=== PATIENT | male | born 1970 | race Caucasian/White ===

== ENCOUNTER 2019-09-12 08:00 | Outpatient (NON) | payer BC, SELFPAY ==
[2019-09-12 18:51] LABS: SARS-CoV-2 RNA PCR Negative
== END 2019-09-12 08:01 ==
PROVIDERS: PCP Emergency Medicine; Visit Provider Emergency Medicine
DX: R50.9 Fever, unspecified (principal); Z20.828 Contact with and (suspected) exposure to other viral communicable diseases
CPT/HCPCS: 87635; C9803; U0003

== ENCOUNTER 2024-01-08 02:17 | Day surgery (SDC) | payer OTHER, SELFPAY ==
[2023-12-18 15:59] VITALS: BMI 33.7
--- NOTE | 2024-01-08 08:24 | P.PNAN_ITS ---
Anes - Initial Pre Proc Eval Procedure: Operation Date: 01/08/24 10:00 Proposed Procedures p Colonoscopy - Manuelito Jonas MD Date/Time: 01/08/24 08:24 Surgeon: Manuelito Jonas MD Pre Op Diagnosis: Other fecal abnormalities Patient Data Age: 53 Gender: M Height: 1.7 m Weight: 97.7 kg Allergies Allergy/AdvReac Type Severity Reaction Status Date / Time No Known Allergies Allergy Verified 01/08/24 08:25 Home Medications Medication Instructions Recorded Confirmed Type famotidine 40 mg tablet 40 mg PO DAILY 12/18/23 01/08/24 History fenofibrate 160 mg tablet 160 mg PO DAILY 12/18/23 01/08/24 History gabapentin 600 mg tablet 600 mg PO DAILY 12/18/23 01/08/24 History glimepiride 2 mg tablet 2 mg PO DAILY 12/18/23 01/08/24 History metformin 850 mg tablet 850 mg PO DAILY 12/18/23 01/08/24 History modafinil 200 mg tablet 200 mg PO DAILY 12/18/23 01/08/24 History olanzapine 10 mg tablet 10 mg PO DAILY 12/18/23 01/08/24 History rosuvastatin 20 mg tablet 20 mg PO DAILY 12/18/23 01/08/24 History Patient hx anesthesia problems: other (Pt had hx of ECT and had difficulty going out . ) Family hx anesthesia problems: none Results Review: All pre-operative results and documents have been reviewed as part of the pre- operative evaluation. [facility] Social History Social History Smoking status: Former smoker Tobacco type: cigarettes Substance use: current Substance use type: marijuana Living arrangements: alone Spiritual care concerns: No Anes - Eval Final PreProcedure Day of Procedure 01/08/24 08:24 Patient weight: obese Heart: regular rate and rhythm Lungs: clear to auscultation Airway: Mallampati scale class II Neurological: alert and oriented Last oral intake: >/= 8 hours ASA classification: III Emergent: no Anesthesia type and monitoring: general GIVS and standard monitoring Results Review: All pre-operative results and documents have been reviewed as part of the pre- operative evaluation. Hyperlipidemia, DM, hx of smoking and quit approx 2021. Informed Consent: The patient's anesthetic plan and its attendant risks and benefits were discussed with the patient/family/POA. Questions were solicited and answers provided to the satisfaction of the patient/family/POA.
[2024-01-08 08:26] VITALS: BP 137/86; PULSE 88; RESP 18; TEMP 36.3; O2SAT 99; BMI 32.2
[2024-01-08] MEDS: LACTATED RINGERS 1,000 ML 150 ML IV CONT (08:39)
--- NOTE | 2024-01-08 08:53 | PM.HPGS ---
History of Present Illness History of Present Illness Consent: Risks, benefits, and alternatives have been discussed and questions answered. Patient agrees to proceed with procedure. Chief complaint: Other fecal abnormalities Narrative: Kevin Hassan is a 53 year old male here for first colonoscopy, had + FOBT Review of Systems Review of Systems: All systems reviewed & are unremarkable except as noted in HPI and below PMFSH Past Medical History Medical History (Updated 01/08/24 @ 08:55 by Manuelito Jonas MD) Occult blood in stools Social History Social History Smoking status: Former smoker Tobacco type: cigarettes Substance use: current Substance use type: marijuana Living arrangements: alone Spiritual care concerns: No Meds Home Medications and Allergies Home Medications Medication Instructions Recorded Confirmed Type famotidine 40 mg tablet 40 mg PO DAILY 12/18/23 01/08/24 History fenofibrate 160 mg tablet 160 mg PO DAILY 12/18/23 01/08/24 History gabapentin 600 mg tablet 600 mg PO DAILY 12/18/23 01/08/24 History glimepiride 2 mg tablet 2 mg PO DAILY 12/18/23 01/08/24 History metformin 850 mg tablet 850 mg PO DAILY 12/18/23 01/08/24 History modafinil 200 mg tablet 200 mg PO DAILY 12/18/23 01/08/24 History olanzapine 10 mg tablet 10 mg PO DAILY 12/18/23 01/08/24 History rosuvastatin 20 mg tablet 20 mg PO DAILY 12/18/23 01/08/24 History Allergies Allergy/AdvReac Type Severity Reaction Status Date / Time No Known Allergies Allergy Verified 01/08/24 08:25 Vital Signs Vital Signs - 24 hr 01/08/24 08:26 Temperature 97.3 F L Pulse Rate 88 Respiratory Rate 18 Blood Pressure 137/86 Pulse Oximetry 99 Oxygen Delivery Room Air Exam Const: General: comfortable and no acute distress HENMT: Face/Nose/Sinus: Normal nares present Eyes: General: appearance normal, both eyes and all related structures Neck: Neck: no JVD Resp: Auscultation: clear to auscultation bilaterally Cardio: Rate: regular rate Rhythm: regular rhythm GI: Inspection: non-distended GI Palp: Yes Soft to palpation Skin: General skin exam: normal color Neuro: General: gait normal Speech: normal speech Extrem: General: normal to inspection Psych: Mental Status: mental status grossly normal Assessment and Plan Assessment and plan (1) Occult blood in stools: Code(s): R19.5 - Other fecal abnormalities Status: Acute Assessment and Plan: colonoscopy
[2024-01-08 10:16] VITALS: BP 115/71; PULSE 79; RESP 18; O2SAT 98
[2024-01-08 10:26] VITALS: BP 122/81; PULSE 76; RESP 17; O2SAT 100
[2024-01-08 10:36] VITALS: BP 123/90; PULSE 71; RESP 20; O2SAT 100
[2024-01-08 11:11] LABS: Glucose Point of Care 135 mg/dl (65-105)
== END 2024-01-08 10:49 | disposition home or self-care (01) ==
PROVIDERS: PCP Emergency Medicine; Visit Provider Internal Medicine Gastroenterology
PROC: 0DJD8ZZ Inspection of Lower Intestinal Tract, Via Natural or Artificial Opening Endoscopic (ICD-10-PCS; CPT 45378; principal; 2024-01-08 10:00)
DX: R19.5 Other fecal abnormalities (principal); D12.4 Benign neoplasm of descending colon; D12.5 Benign neoplasm of sigmoid colon; Z87.891 Personal history of nicotine dependence
CPT/HCPCS: 45385; 45381; 82948; 88305; J2704; J7120

== ENCOUNTER 2025-02-17 01:57 | Day surgery (SDC) | payer OTHER, SELFPAY ==
[2025-02-05 14:51] VITALS: BMI 34.5
--- OUTSIDE RECORDS SUMMARY | 2025-02-17 01:59 | XMS_ITS | Clinical Summary ---
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 Name Role Phone Unavailable Primary Care Provider Unavailabl e Social History Tobacco Use Types Packs/Day Years Used Date Smoking Tobacco: Never Assessed Comments Unknown Sex and Gender Information Value Date Recorded Sex Assigned at Not on file Legal Sex Female 2:19 PM CDT Gender Identity Not on file Sexual Orientation Not on file Plan of Treatment Health Maintenance Due Date Last Done Comments HEPATITIS B VACCINES (1 of 3 - 19+ 3-dose series) 1989 HPV/Cotest (21-29) 12/11/1991 CERVICAL CANCER SCREENING 2000 HPV/Cotest (30-65) 2000 PAP SMEAR 2000 BREAST CANCER SCREENING 2010 COLORECTAL SCREENING 12/11/2015 Colorectal Cancer Screening 12/11/2015 FIT-DNA Q 3 years 12/11/2015 FIT/FOBT Q 1 year 12/11/2015 Flex Sig/CT Colonography Q 5 years 12/11/2015 ZOSTER VACCINE (1 of 2) 2020 DTAP/TDAP/TD VACCINES (2 - Td or Tdap) 01/22/2024 INFLUENZA VACCINE (#1) 2024 01/21/2015, 2010
--- OUTSIDE RECORDS SUMMARY | 2025-02-17 01:59 | XMS_ITS | Data Portability ---
Author Organization Sukhdeep CÁRDENAS Address [address] [place] [address] [place] [address] Assessment No assessment recorded. Plan of Treatment Reminders Order Date Submit Date Provider Last Modified By Organization Details Last Modified Time Details Appointments None recorded. Lab CMP, serum or plasma 2015 016 LUANN FLETCHER, Ferdinand [address], [address], [place], [address], 6 06:15:08 lipid panel, serum 2015 016 LUANN FLETCHER, Ferdinand aldatresa [address], [address], [place], [address], 6 06:15:09 CBC 2015 016 LUANN FLETCHER, Ferdinand aldatresa [address], [address], [place], [address], 6 06:15:09 PSA, serum or plasma 2014 015 LUANN FLETCHER, Ferdinand anushabhartitresa [address], [address], [place], [address], 5 07:22:40 CBC 2014 015 LUANN FLETCHER, Ferdinand Camera Agroalimentosaldatresa [address], [address], [place], [address], 5 07:22:39 CMP, serum or plasma 2014 015 LUANN FLETCHER, Ferdinand [address], [address], [place], [address], 5 07:22:38 lipid panel, serum 2014 015 LUANN [facility], [address], [address], [place], [address], 5 07:22:39 TSH, serum or plasma 2014 015 LUANN [facility], [address], [address], [place], [address], 5 07:22:40 CMP, serum or plasma 2014 015 [email or web address] [facility], [address], [address], [place], [address], 5 09:32:30 lipid panel, serum 2014 015 [email or web address] [facility], [address], [address], [place], [address], 5 09:32:30 CMP, serum or plasma 2014 015 [facility], [address], [address], [place], [address], 5 16:27:58 lipid panel, serum 2014 015 [email or web address] [facility], [address], [address], [place], [address], 5 16:27:58 Referral physical therapist referral 2014 015 [email or web address] [facility], [address] [facility], [place], [address], 5 08:42:37 Procedures None recorded. Surgeries None recorded. Imaging x-ray, thoracic spine, 2 view 2014 015 LUANN Not available 5 11:43:36 Medication Orders erythromyci n 5 mg/gram (0.5 %) eye ointment 2015 016 nsuthan [facility] [place], [address], [place], [address], 6 09:38:20 baclofen 20 mg tablet 2014 015 nsuthan Not available 5 09:40:11 triamcinolo ne acetonide 0.1 % topical cream 2014 015 nsuthan Not available 6 09:14:49 baclofen 10 mg tablet 2014 015 nsuthan Not available 5 09:34:34 ranitidine 150 mg tablet 2014 015 nsuthan Not available 5 12:03:56 pravastatin 40 mg tablet 2014 015 nsuthan Not available 5 12:03:56 fenofibrate 160 mg tablet 2014 015 nsuthan Not available 5 12:03:56 fenofibrate 160 mg tablet 2014 015 nsuthan Not available 5 13:13:28 gabapentin 300 mg capsule 2014 015 nsuthan Not available 5 13:13:29 Mobic 15 mg tablet 2014 015 nsuthan Not available 5 11:53:03 ranitidine 150 mg tablet 2014 015 nsuthan Not available 5 13:13:29 Patient TargetsNo targets recorded. Patient Instructions Encounter Date Encounter Id Patient Instructions Last Modified By Organization Details Last Modified Time 05/15/2014 [id number] gastroesophageal reflux disease (GERD): care instructions nsuthan Not available 05/15/2014 13:13:29 Take meds as prescribed labs before next visit Healthy diet/ exercise nsuthan Not available 05/15/2014 13:13:29 09/17/2014 [id number] Take meds as prescribed Healthy diet/ exercise f/u in 3 month with labs nsuthan Not available 09/17/2014 12:03:56 01/21/2015 [id number] Take meds as prescribed Healthy diet/ exercise f/u in 3 month nsuthan Not available 01/21/2015 09:40:11 04/22/2015 [id number] Take meds as prescribed Healthy diet/ exercise f/u in 4 month nsuthan Not available 04/22/2015 09:37:55 10/21/2015 [id number] pt to restart me ds as prescribed Healthy diet/ exercise pt to see eye doctor f/u in 4 month nsuthan Not available 10/21/2015 09:38:20 Reason for Referral Referring Physician: Erika Mitchell, Internal Medicine, Encounter Date: 01/21/2015 Results Created Date Observation Date Name Description Value Unit Range Abnormal Flag Note LastModifiedBy Organization Detail LastModifiedTime 09/10/19 15 09/10/2014 CMP, serum or plasm a glucose, serum 134 mg/dL 65-99 high Not Available [facility] ([facility]) [address] [place], [address], 09/10/2014 06:28:53 09/10/19 15 09/10/2014 CMP, serum or plasm a BUN 17 mg/dL 6-24 Not Available [facility] ([facility]) [address] [place], [address], 09/10/2014 06:28:53 09/10/19 15 09/10/2014 CMP, serum or plasm a creatinine, serum 1.67 mg/dL 0.76-1 .27 high Not Available [facility] ([facility]) [address] [place], [address], 09/10/2014 06:28:53 09/10/19 15 09/10/2014 CMP, serum or plasm a eGFR if nonafricn AM 49 mL/mi n/1.7 3 >59 low Not Available [facility] ([facility]) [address] [facility] [place], [address], 09/10/2014 06:28:53 09/10/19 15 09/10/2014 CMP, serum or plasm a eGFR if africn AM 57 mL/mi n/1.7 3 >59 low Not Available [facility] ([facility]) [address] [facility] [place], [address], 09/10/2014 06:28:53 09/10/19 15 09/10/2014 CMP, serum or plasm a BUN/creatini ne ratio 10 9-20 Not Available [facility] ([facility]) [address] [facility] [place], [address], 09/10/2014 06:28:53 09/10/19 15 09/10/2014 CMP, serum or plasm a sodium, serum 140 mmol/ L 134-14 4 Not Available [facility] ([facility]) [address] [facility] [place], [address], 09/10/2014 06:28:53 09/10/19 15 09/10/2014 CMP, serum or plasm a potassium, serum 4.1 mmol/ L 3.5-5. 2 Not Available [facility] ([facility]) [address] [facility] [place], [address], 09/10/2014 06:28:53 09/10/1909/10/2014 CMP, serum or plasm a chloride, serum 101 mmol/ L 97-108 Not Available [facility] ([facility]) [address] [facility] [place], [address], 09/10/2014 06:28:53 09/10/1909/10/2014 CMP, serum or plasm a carbon dioxide, total 23 mmol/ L 18-29 Not Available [facility] ([facility]) [address] [facility] [place], [address], 09/10/2014 06:28:53 09/10/19 15 09/10/2014 CMP, serum or plasm a calcium, serum 10.2 mg/dL 8.7-10 .2 Not Available [facility] ([facility]) [address] [place], [address], 09/10/2014 06:28:53 09/10/19 15 09/10/2014 CMP, serum or plasm a protein, total, serum 7.2 g/dL 6.0-8. 5 Not Available [facility] ([facility]) [address] [place], [address], 09/10/2014 06:28:53 09/10/1909/10/2014 CMP, serum or plasm a albumin, serum 4.7 g/dL 3.5-5. 5 Not Available [facility] ([facility]) [address] [place], [address], 09/10/2014 06:28:53 09/10/1909/10/2014 CMP, serum or plasm a globulin, total 2.5 g/dL 1.5-4. 5 Not Available [facility] ([facility]) [address] [place], [address], 09/10/2014 06:28:53 09/10/19 15 09/10/2014 CMP, serum or plasm a A/G ratio 1.9 1.1-2. 5 Not Available [facility] ([facility]) [address] [place], [address], 09/10/2014 06:28:53 09/10/1909/10/2014 CMP, serum or plasm a bilirubin, total 0.2 mg/dL 0.0-1. 2 Not Available [facility] ([facility]) [address] [place], [address], 09/10/2014 06:28:53 09/10/19 15 09/10/2014 CMP, serum or plasm a alkaline phosphatase, S 37 IU/L 39-117 low Not Available [facility] ([facility]) [address] [place], [address], 09/10/2014 06:28:53 09/10/19 15 09/10/2014 CMP, serum or plasm a AST (SGOT) 23 IU/L 0-40 Not Available [facility] ([facility]) [address] [place], [address], 09/10/2014 06:28:53 09/10/19 15 09/10/2014 CMP, serum or plasm a ALT (SGPT) 23 IU/L 0-44 Not Available [facility] ([facility]) [address] [place], [address], 09/10/2014 06:28:53 09/10/19 15 09/10/2014 lipid panel , serum cholesterol, total 247 mg/dL 100-19 9 high Not Available [facility] ([facility]) [address] [place], [address], 09/10/2014 06:28:54 09/10/19 15 09/10/2014 lipid panel , serum triglyceride s 286 mg/dL 0-149 high Not Available [facility] ([facility]) [address] [place], [address], 09/10/2014 06:28:54 09/10/19 15 09/10/2014 lipid panel , serum HDL cholesterol 38 mg/dL >39 low ACCOR DING TO ATP-I II GUIDE LINES , HDL-C >59 MG/DL IS CONSI DERED A NEGAT VALERIE RISK FACTO R FOR CHD. Not Available [facility] ([facility]) [address] [place], [address], 09/10/2014 06:28:54 09/10/19 15 09/10/2014 lipid panel , serum VLDL cholesterol jesse 57 mg/dL 5-40 high Not Available [facility] ([facility]) [address] [place], [address], 09/10/2014 06:28:54 09/10/19 15 09/10/2014 lipid panel , serum LDL cholesterol calc 152 mg/dL 0-99 high Not Available [facility] ([facility]) [address] [facility] [place], [address], 09/10/2014 06:28:54 09/10/19 15 09/10/2014 lipid panel , serum comment: [employer] Not Available [facility] ([facility]) [address] [place], [address], 09/10/2014 06:28:54 01/16/20 15 01/16/2015 CMP, serum or plasm a glucose, serum 86 mg/dL 65-99 Not Available [facility] ([facility]) [address] [facility] [place], [address], 01/16/2015 07:29:22 01/16/20 15 01/16/2015 CMP, serum or plasm a BUN 12 mg/dL 6-24 Not Available [facility] ([facility]) [address] [facility] [place], [address], 01/16/2015 07:29:22 01/16/20 15 01/16/2015 CMP, serum or plasm a creatinine, serum 1.20 mg/dL 0.76-1 .27 Not Available [facility] ([facility]) [address] [facility] [place], [address], 01/16/2015 07:29:22 01/16/20 15 01/16/2015 CMP, serum or plasm a eGFR if nonafricn AM 73 mL/mi n/1.7 3 >59 Not Available [facility] ([facility]) [address] [facility] [place], [address], 01/16/2015 07:29:22 01/16/20 15 01/16/2015 CMP, serum or plasm a eGFR if africn AM 85 mL/mi n/1.7 3 >59 Not Available [facility] ([facility]) [address] [place], [address], 01/16/2015 07:29:22 01/16/20 15 01/16/2015 CMP, serum or plasm a BUN/creatini ne ratio 10 9-20 Not Available [facility] ([facility]) [address] [facility] [place], [address], 01/16/2015 07:29:22 01/16/20 15 01/16/2015 CMP, serum or plasm a sodium, serum 141 mmol/ L 134-14 4 Not Available [facility] ([facility]) [address] [place], [address], 01/16/2015 07:29:22 01/16/20 15 01/16/2015 CMP, serum or plasm a potassium, serum 4.5 mmol/ L 3.5-5. 2 Not Available [facility] ([facility]) [address] [place], [address], 01/16/2015 07:29:22 01/16/20 15 01/16/2015 CMP, serum or plasm a chloride, serum 102 mmol/ L 97-108 Not Available [facility] ([facility]) [address] [place], [address], 01/16/2015 07:29:22 01/16/20 15 01/16/2015 CMP, serum or plasm a carbon dioxide, total 22 mmol/ L 18-29 Not Available [facility] ([facility]) [address] [place], [address], 01/16/2015 07:29:22 01/16/20 15 01/16/2015 CMP, serum or plasm a calcium, serum 9.8 mg/dL 8.7-10 .2 Not Available [facility] ([facility]) [address] [place], [address], 01/16/2015 07:29:22 01/16/20 15 01/16/2015 CMP, serum or plasm a protein, total, serum 7.2 g/dL 6.0-8. 5 Not Available [facility] ([facility]) [address] [facility] [place], [address], 01/16/2015 07:29:22 01/16/2001/16/2015 CMP, serum or plasm a albumin, serum 4.9 g/dL 3.5-5. 5 Not Available [facility] ([facility]) [address] [facility] [place], [address], 01/16/2015 07:29:22 01/16/2001/16/2015 CMP, serum or plasm a globulin, total 2.3 g/dL 1.5-4. 5 Not Available [facility] ([facility]) [address] [facility] [place], [address], 01/16/2015 07:29:22 01/16/2001/16/2015 CMP, serum or plasm a A/G ratio 2.1 1.1-2. 5 Not Available [facility] ([facility]) [address] [facility] [place], [address], 01/16/2015 07:29:22 01/16/2001/16/2015 CMP, serum or plasm a bilirubin, total <0.2 mg/dL 0.0-1. 2 Not Available [facility] ([facility]) [address] [facility] [place], [address], 01/16/2015 07:29:22 01/16/2001/16/2015 CMP, serum or plasm a alkaline phosphatase, S 57 IU/L 39-117 Not Available [facility] ([facility]) [address] [facility] [place], [address], 01/16/2015 07:29:22 01/16/2001/16/2015 CMP, serum or plasm a AST (SGOT) 26 IU/L 0-40 Not Available [facility] ([facility]) [address] [facility] [place], [address], 01/16/2015 07:29:22 01/16/20 15 01/16/2015 CMP, serum or plasm a ALT (SGPT) 38 IU/L 0-44 Not Available [facility] ([facility]) [address] [place], [address], 01/16/2015 07:29:22 01/16/20 15 01/16/2015 lipid panel , serum cholesterol, total 241 mg/dL 100-19 9 above high normal Not Available [facility] ([facility]) [address] [place], [address], 01/16/2015 07:29:22 01/16/2001/16/2015 lipid panel , serum triglyceride s 651 mg/dL 0-149 alert high Not Available [facility] ([facility]) [address] [place], [address], 01/16/2015 07:29:22 01/16/20 15 01/16/2015 lipid panel , serum HDL cholesterol 32 mg/dL >39 below low normal ACCOR DING TO ATP-I II GUIDE LINES , HDL-C >59 MG/DL IS CONSI DERED A NEGAT VALERIE RISK FACTO R FOR CHD. Not Available [facility] ([facility]) [address] [place], [address], 01/16/2015 07:29:22 01/16/2001/16/2015 lipid panel , serum VLDL cholesterol jesse COMMEN T mg/dL 5-40 THE CALCU LATIO N FOR THE VLDL MERY STERO L IS NOT VALID WHEN TRIGL YCERI DE LEVEL IS >400 MG/DL . Not Available [facility] ([facility]) [address] [place], [address], 01/16/2015 07:29:22 01/16/20 15 01/16/2015 lipid panel , serum LDL cholesterol calc COMMEN T mg/dL 0-99 TRIGL YCERI DE RESUL T INDIC ATED IS TOO HIGH FOR AN ACCUR ATE LDL MERY STERO L ESTIM ATION . Not Available [facility] ([facility]) [address] [facility] [place], [address], 01/16/2015 07:29:22 01/16/20 15 01/16/2015 lipid panel , serum comment: [employer] Not Available [facility] ([facility]) [address] [facility] [place], [address], 01/16/2015 07:29:22 04/22/20 15 04/23/2015 CMP, serum or plasm a glucose, serum 94 mg/dL 65-99 Not Available [facility] ([facility]) [address] [facility] [place], [address], 04/23/2015 07:22:38 04/22/20 15 04/23/2015 CMP, serum or plasm a BUN 12 mg/dL 6-24 Not Available [facility] ([facility]) [address] [facility] [place], [address], 04/23/2015 07:22:38 04/22/20 15 04/23/2015 CMP, serum or plasm a creatinine, serum 1.25 mg/dL 0.76-1 .27 Not Available [facility] ([facility]) [address] [facility] [place], [address], 04/23/2015 07:22:38 04/22/20 15 04/23/2015 CMP, serum or plasm a eGFR if nonafricn AM 70 mL/mi n/1.7 3 >59 Not Available [facility] ([facility]) [address] [facility] [place], [address], 04/23/2015 07:22:38 04/22/20 15 04/23/2015 CMP, serum or plasm a eGFR if africn AM 80 mL/mi n/1.7 3 >59 Not Available [facility] ([facility]) [address] [facility] [place], [address], 04/23/2015 07:22:38 04/22/20 15 04/23/2015 CMP, serum or plasm a BUN/creatini ne ratio 10 9-20 Not Available [facility] ([facility]) [address] [place], [address], 04/23/2015 07:22:38 04/22/20 15 04/23/2015 CMP, serum or plasm a sodium, serum 141 mmol/ L 134-14 4 Not Available [facility] ([facility]) [address] [place], [address], 04/23/2015 07:22:38 04/22/20 15 04/23/2015 CMP, serum or plasm a potassium, serum 4.5 mmol/ L 3.5-5. 2 Not Available [facility] ([facility]) [address] [place], [address], 04/23/2015 07:22:38 04/22/20 15 04/23/2015 CMP, serum or plasm a chloride, serum 103 mmol/ L 97-108 Not Available [facility] ([facility]) [address] [place], [address], 04/23/2015 07:22:38 04/22/20 15 04/23/2015 CMP, serum or plasm a carbon dioxide, total 24 mmol/ L 18-29 Not Available [facility] ([facility]) [address] [place], [address], 04/23/2015 07:22:38 04/22/20 15 04/23/2015 CMP, serum or plasm a calcium, serum 9.9 mg/dL 8.7-10 .2 Not Available [facility] ([facility]) [address] [place], [address], 04/23/2015 07:22:38 04/22/20 15 04/23/2015 CMP, serum or plasm a protein, total, serum 7.2 g/dL 6.0-8. 5 Not Available [facility] ([facility]) [address] [place], [address], 04/23/2015 07:22:38 04/22/20 15 04/23/2015 CMP, serum or plasm a albumin, serum 4.6 g/dL 3.5-5. 5 Not Available [facility] ([facility]) [address] [place], [address], 04/23/2015 07:22:38 04/22/20 15 04/23/2015 CMP, serum or plasm a globulin, total 2.6 g/dL 1.5-4. 5 Not Available [facility] ([facility]) [address] [place], [address], 04/23/2015 07:22:38 04/22/20 15 04/23/2015 CMP, serum or plasm a A/G ratio 1.8 1.1-2. 5 Not Available [facility] ([facility]) [address] [place], [address], 04/23/2015 07:22:38 04/22/20 15 04/23/2015 CMP, serum or plasm a bilirubin, total <0.2 mg/dL 0.0-1. 2 Not Available [facility] ([facility]) [address] [place], [address], 04/23/2015 07:22:38 04/22/20 15 04/23/2015 CMP, serum or plasm a alkaline phosphatase, S 34 IU/L 39-117 below low normal Not Available [facility] ([facility]) [address] [place], [address], 04/23/2015 07:22:38 04/22/20 15 04/23/2015 CMP, serum or plasm a AST (SGOT) 26 IU/L 0-40 Not Available [facility] ([facility]) [address] [place], [address], 04/23/2015 07:22:38 04/22/20 15 04/23/2015 CMP, serum or plasm a ALT (SGPT) 28 IU/L 0-44 Not Available [facility] ([facility]) [address] [facility], [place], [address], 04/23/2015 07:22:38 04/22/20 15 04/23/2015 CBC WBC 5.9 x10e3 /uL 3.4-10 .8 Not Available [facility] ([facility]) [address] [facility], [place], [address], 04/23/2015 07:22:38 04/22/20 15 04/23/2015 CBC RBC 4.34 x10e6 /uL 4.14-5 .80 Not Available [facility] ([facility]) [address] [facility], [place], [address], 04/23/2015 07:22:38 04/22/20 15 04/23/2015 CBC hemoglobin 13.2 g/dL 12.6-1 7.7 Not Available [facility] ([facility]) [address] [facility], [place], [address], 04/23/2015 07:22:38 04/22/20 15 04/23/2015 CBC hematocrit 39.0 % 37.5-5 1.0 Not Available [facility] ([facility]) [address] [facility], [place], [address], 04/23/2015 07:22:38 04/22/20 15 04/23/2015 CBC MCV 90 fL 79-97 Not Available [facility] ([facility]) [address] [facility], [place], [address], 04/23/2015 07:22:38 04/22/20 15 04/23/2015 CBC MCH 30.4 pg 26.6-3 3.0 Not Available [facility] ([facility]) [address] [place], [address], 04/23/2015 07:22:38 04/22/20 15 04/23/2015 CBC MCHC 33.8 g/dL 31.5-3 5.7 Not Available [facility] ([facility]) [address] [place], [address], 04/23/2015 07:22:38 04/22/20 15 04/23/2015 CBC RDW 13.6 % 12.3-1 5.4 Not Available [facility] ([facility]) [address] [place], [address], 04/23/2015 07:22:38 04/22/20 15 04/23/2015 CBC platelets 288 x10e3 /uL 150-37 9 Not Available [facility] ([facility]) [address] [place], [address], 04/23/2015 07:22:38 04/22/20 15 04/23/2015 CBC NRBC [employer] Not Available [facility] ([facility]) [address] [place], [address], 04/23/2015 07:22:38 04/22/20 15 04/23/2015 lipid panel , serum cholesterol, total 186 mg/dL 100-19 9 Not Available [facility] ([facility]) [address] [place] [place], [address], 04/23/2015 07:22:39 04/22/20 15 04/23/2015 lipid panel , serum triglyceride s 163 mg/dL 0-149 above high normal Not Available [facility] ([facility]) [address] [place], [address], 04/23/2015 07:22:39 04/22/20 15 04/23/2015 lipid panel , serum HDL cholesterol 42 mg/dL >39 ACCOR DING TO ATP-I II GUIDE LINES , HDL-C >59 MG/DL IS CONSI DERED A NEGAT VALERIE RISK FACTO R FOR CHD. Not Available [facility] ([facility]) [address] [place], [address], 04/23/2015 07:22:39 04/22/20 15 04/23/2015 lipid panel , serum VLDL cholesterol jesse 33 mg/dL 5-40 Not Available [facility] ([facility]) [address] [facility], [place], [address], 04/23/2015 07:22:39 04/22/20 15 04/23/2015 lipid panel , serum LDL cholesterol calc 111 mg/dL 0-99 above high normal Not Available [facility] ([facility]) [address] [place], [address], 04/23/2015 07:22:39 04/22/20 15 04/23/2015 lipid panel , serum comment: [employer] Not Available [facility] ([facility]) [address] [facility], [place], [address], 04/23/2015 07:22:39 04/22/20 15 04/23/2015 TSH, serum or plasm a TSH 3.180 uIU/m L 0.450- 4.500 Not Available [facility] ([facility]) [address] [facility], [place], [address], 04/23/2015 07:22:40 04/22/20 15 04/23/2015 PSA, serum or plasm a prostate specific Ag, serum 0.5 NG/mL 0.0-4. 0 ZACHARY ECLIA METHO DOLOG Y. ACCOR DING TO THE [employer] CAN [facility]OL[facility] N, SERUM PSA SHOUL D DECRE ASE AND REMAI N AT UNDET ECTAB LE LEVEL S AFTER RADIC AL PROST ATECT CELINA. THE AUA DEFIN ES BIOCH EMICA L RECUR RENCE AN INITI AL PSA VALUE 0.2 NG/ML OR GREAT ER FOLLO WED BY A SUBSE QUENT CONFI RMATO RY PSA VALUE 0.2 NG/ML OR GREAT ER. VALUE S OBTAI MARIYA WITH DIFFE RENT ASSAY METHO DS OR KITS CANNO T BE USED INTER LEACH EABLY . RESUL TS CANNO T BE INTER PRETE D ABSOL FAUSTINO EVIDE NCE OF THE PRESE NCE OR ABSEN CE OF JUDY MATOS SE. Not Available [facility] ([facility]) [address] [facility] [place], [address], 04/23/2015 07:22:40 10/21/19 16 10/22/2015 CMP, serum or plasm a glucose, serum 84 mg/dL 65-99 Not Available [facility] ([facility]) [address] [facility] [place], [address], 10/22/2015 06:15:08 10/21/19 16 10/22/2015 CMP, serum or plasm a BUN 8 mg/dL 6-24 Not Available [facility] ([facility]) [address] [facility] [place], [address], 10/22/2015 06:15:08 10/21/19 16 10/22/2015 CMP, serum or plasm a creatinine, serum 0.95 mg/dL 0.76-1 .27 Not Available [facility] ([facility]) [address] [place], [address], 10/22/2015 06:15:08 10/21/19 16 10/22/2015 CMP, serum or plasm a eGFR if nonafricn AM 97 mL/mi n/1.7 3 >59 Not Available [facility] ([facility]) [address] [place], [address], 10/22/2015 06:15:08 10/21/19 16 10/22/2015 CMP, serum or plasm a eGFR if africn AM 112 mL/mi n/1.7 3 >59 Not Available [facility] ([facility]) [address] [place], [address], 10/22/2015 06:15:08 10/21/19 16 10/22/2015 CMP, serum or plasm a BUN/creatini ne ratio 8 9-20 below low normal Not Available [facility] ([facility]) [address] [facility] [place], [address], 10/22/2015 06:15:08 10/21/19 16 10/22/2015 CMP, serum or plasm a sodium, serum 142 mmol/ L 134-14 4 Not Available [facility] ([facility]) [address] [facility] [place], [address], 10/22/2015 06:15:08 10/21/19 16 10/22/2015 CMP, serum or plasm a potassium, serum 4.7 mmol/ L 3.5-5. 2 Not Available [facility] ([facility]) [address] [facility] [place], [address], 10/22/2015 06:15:08 10/21/19 16 10/22/2015 CMP, serum or plasm a chloride, serum 101 mmol/ L 97-108 Not Available [facility] ([facility]) [address] [place], [address], 10/22/2015 06:15:08 10/21/19 16 10/22/2015 CMP, serum or plasm a carbon dioxide, total 25 mmol/ L 18-29 Not Available [facility] ([facility]) [address] [facility] [place], [address], 10/22/2015 06:15:08 10/21/19 16 10/22/2015 CMP, serum or plasm a calcium, serum 10.1 mg/dL 8.7-10 .2 Not Available [facility] ([facility]) [address] [place], [address], 10/22/2015 06:15:08 10/21/19 16 10/22/2015 CMP, serum or plasm a protein, total, serum 7.1 g/dL 6.0-8. 5 Not Available [facility] ([facility]) [address] [place], [address], 10/22/2015 06:15:08 10/21/19 16 10/22/2015 CMP, serum or plasm a albumin, serum 4.8 g/dL 3.5-5. 5 Not Available [facility] ([facility]) [address] [place], [address], 10/22/2015 06:15:08 10/21/19 16 10/22/2015 CMP, serum or plasm a globulin, total 2.3 g/dL 1.5-4. 5 Not Available [facility] ([facility]) [address] [place], [address], 10/22/2015 06:15:08 10/21/19 16 10/22/2015 CMP, serum or plasm a A/G ratio 2.1 1.1-2. 5 Not Available [facility] ([facility]) [address] [place], [address], 10/22/2015 06:15:08 10/21/19 16 10/22/2015 CMP, serum or plasm a bilirubin, total 0.3 mg/dL 0.0-1. 2 Not Available [facility] ([facility]) [address] [place], [address], 10/22/2015 06:15:08 10/21/19 16 10/22/2015 CMP, serum or plasm a alkaline phosphatase, S 53 IU/L 39-117 Not Available [facility] ([facility]) [address] [place], [address], 10/22/2015 06:15:08 10/21/19 16 10/22/2015 CMP, serum or plasm a AST (SGOT) 24 IU/L 0-40 Not Available [facility] ([facility]) [address] [place], [address], 10/22/2015 06:15:08 10/21/19 16 10/22/2015 CMP, serum or plasm a ALT (SGPT) 35 IU/L 0-44 Not Available [facility] ([facility]) [address] [place], [address], 10/22/2015 06:15:08 10/21/19 16 10/22/2015 CBC WBC 9.5 x10e3 /uL 3.4-10 .8 Not Available [facility] ([facility]) [address] [facility] [place], [address], 10/22/2015 06:15:09 10/21/19 16 10/22/2015 CBC RBC 4.68 x10e6 /uL 4.14-5 .80 Not Available [facility] ([facility]) [address] [facility] [place], [address], 10/22/2015 06:15:09 10/21/19 16 10/22/2015 CBC hemoglobin 14.9 g/dL 12.6-1 7.7 Not Available [facility] ([facility]) [address] [facility] [place], [address], 10/22/2015 06:15:09 10/21/19 16 10/22/2015 CBC hematocrit 43.5 % 37.5-5 1.0 Not Available [facility] ([facility]) [address] [facility] [place], [address], 10/22/2015 06:15:09 10/21/19 16 10/22/2015 CBC MCV 93 fL 79-97 Not Available [facility] ([facility]) [address] [facility] [place], [address], 10/22/2015 06:15:09 10/21/19 16 10/22/2015 CBC MCH 31.8 pg 26.6-3 3.0 Not Available [facility] ([facility]) [address] [facility] [place], [address], 10/22/2015 06:15:09 10/21/19 16 10/22/2015 CBC MCHC 34.3 g/dL 31.5-3 5.7 Not Available [facility] ([facility]) [address] [facility] [place], [address], 10/22/2015 06:15:09 10/21/19 16 10/22/2015 CBC RDW 13.8 % 12.3-1 5.4 Not Available [facility] ([facility]) [address], [place], [address], 10/22/2015 06:15:09 10/21/19 16 10/22/2015 CBC platelets 242 x10e3 /uL 150-37 9 Not Available [facility] ([facility]) [address] [place], [address], 10/22/2015 06:15:09 10/21/19 16 10/22/2015 CBC NRBC [employer] Not Available [facility] ([facility]) [address] [place], [address], 10/22/2015 06:15:09 10/21/19 16 10/22/2015 lipid panel , serum cholesterol, total 251 mg/dL 100-19 9 above high normal Not Available [facility] ([facility]) [address] [facility] [place], [address], 10/22/2015 06:15:09 10/21/19 16 10/22/2015 lipid panel , serum triglyceride s 238 mg/dL 0-149 above high normal Not Available [facility] ([facility]) [address] [place], [address], 10/22/2015 06:15:09 10/21/19 16 10/22/2015 lipid panel , serum HDL cholesterol 37 mg/dL >39 below low normal ACCOR DING TO ATP-I II GUIDE LINES , HDL-C >59 MG/DL IS CONSI DERED A NEGAT VALERIE RISK FACTO R FOR CHD. Not Available [facility] ([facility]) [address] [place], [address], 10/22/2015 06:15:09 10/21/19 16 10/22/2015 lipid panel , serum VLDL cholesterol jesse 48 mg/dL 5-40 above high normal Not Available [facility] ([facility]) [address] [facility] [place], [address], 10/22/2015 06:15:09 10/21/19 16 10/22/2015 lipid panel , serum LDL cholesterol calc 166 mg/dL 0-99 above high normal Not Available [facility] ([facility]) [address] [facility], [place], [address], 10/22/2015 06:15:09 10/21/19 16 10/22/2015 lipid panel , serum comment: [employer] Not Available [facility] ([facility]) [address] [facility], [place], [address], 10/22/2015 06:15:09 12/25/19 15 12/21/2014 CT orbit s No observ ation record ed. [email or web address] [facility] ([facility]) Scheduling [address] [place], [address], 01/21/2015 09:25:44 02/03/20 15 02/02/2015 x-ray , thora cic spine , 2 view No observ ation record ed. [email or web address] [facility] ([facility]) Scheduling [address] [place], [address], 02/02/2015 15:07:22 Result Notes None recorded. Problems Name Problem SNOMED Code Status Onset Date Resolution Date Notes Provider Name and Address Organization Details Recorded Time Hyperlipidemia 78795117 Active Leeanne Mitchell MD Attn: Anjelica will,[address] [facility], [place], [address], [facility] 6 08:45:08 Chronic renal failure 43667965 Active Leeanne Mitchell MD Attn: Anjelica will,[address] [facility], [place], [address], [place] [facility] 5 09:40:10 Chronic dermatitis 88975367 Active Leeanne Mitchell MD Attn: Anjelica will,[address] [facility], [place], [address], [place] [facility] 5 09:40:10 Smoker 39034035 Active Leeanne Mitchell MD Attn: Anjelica will,[address] [facility], [place], [address], [place] [facility] 5 11:00:31 Acute conjunctivitis 74929455 Active Leeanne Mitchell MD Attn: Anjelica will,[address] [place], [address], [place] [facility] 6 09:38:20 Hypertriglycer idemia 508858988 Active Leeanne Mitchell MD Attn: Humairashanda will,[address] [place], [address], [place] [facility] 5 13:13:28 Bipolar disorder [address]505 Active Dr.Web cy Mitchell MD Attn: Anjelica will,[address] [place], [address], [facility] 6 09:38:20 Gastroesophage al reflux disease 952485511 Active Leeanne Mitchell MD Attn: Anjelica will,[address] [place], [address], [place] [facility] 5 12:03:56 Chronic back pain 025189381 Active Leeanne Mitchell MD Attn: Humairashanda will,[address] [place], [address], [place] [facility] 5 09:37:55 Knee pain Active Leeanne Mitchell MD Attn: Anjelica nicolette,[address] [place], [address], [facility] 5 13:13:28 Problem Notes None recorded. Medical Equipment None Reported. Allergies No known drug allergies Medications Name Sig Start Date Stop Date Status Note LastModified by Organization Details LastModified Time pravastatin 40 mg tablet TAKE 1 TABLET (40 MG) BY ORAL ROUTE ONCE DAILY AT BEDTIME 2015 active Not Available Not Available Not Avai lable meloxicam 15 mg tablet TAKE ONE TABLET BY MOUTH EVERY DAY WITH MEAL NEEDED FOR PAIN active Not Available Not Available No t Available Nicoderm CQ 21 mg/24 hr daily transdermal patch Apply 1 patch every day by transdermal route. 2014 active Not Available Not Available Not Avai lable Zithromax Z-Bowen 250 mg tablet TAKE 2 TABLETS (500 MG) BY ORAL ROUTE ONCE DAILY FOR 1 DAY THEN 1 TABLET (250 MG) BY ORAL ROUTE ONCE DAILY FOR 4 DAYS 2014 active Not Available Not Available Not Avai lable triamcinolon e acetonide 0.1 % topical cream APPLY A THIN LAYER TO THE AFFECTED AREA(S) BY TOPICAL ROUTE 2 TIMES PER DAY 2015 active Not Available Not Available Not Avai lable baclofen 20 mg tablet TAKE ONE TABLET BY MOUTH TWO TIMES A DAY 2015 active Not Available Not Available Not Avai lable nystatin-tri amcinolone 100,000 unit/gram-0. 1 % topical ointment apply to face as needed twice daily 2014 active Not Available Not Available Not Avai lable lorazepam 0.5 mg tablet psych active Not Available Not Available Not Available baclofen 10 mg tablet Take 1 tablet every day by oral route at bedtime. 2014 active Not Available Not Available Not Avai lable erythromycin 5 mg/gram (0.5 %) eye ointment APPLY 1 CM RIBBON INTO THE LOWER CONJUNCTIVA L SAC(S) IN THE AFFECTED EYE(S) BY OPHTHALMIC ROUTE 3 TIMES PER DAY 2015 active Not Available Not Available Not Avai lable trazodone 150 mg tablet active Not Available Not Available Not Available ranitidine 150 mg tablet TAKE ONE TABLET BY MOUTH TWO TIMES A DAY 2015 active Not Available Not Available Not Avai lable nystatin-tri amcinolone 100,000 unit/g-0.1 % topical cream apply to face as needed twice daily 2014 active Not Available Not Available Not Avai lable gabapentin 300 mg capsule TAKE ONE CAPSULE BY MOUTH TWO TIMES A DAY 2015 active Not Available Not Available Not Avai lable buspirone 15 mg tablet Take 1 tablet 3 times a day by oral route. active Not Available Not Available No t Available fenofibrate 160 mg tablet TAKE ONE TABLET BY MOUTH EVERY DAY 2015 active Not Available Not Available Not Avai lable Strattera 80 mg capsule Take 1 capsule every day by oral route. active Not Available Not Available No t Available Athlete's Foot (clotrimazol e) 1 % topical cream APPLY TO THE AFFECTED AND SURROUNDING AREAS OF SKIN BY TOPICAL ROUTE 2 TIMES PER DAY IN THE MORNING AND EVENING 2015 active Not Available Not Available Not Avai lable Seroquel XR 300 mg tablet,exten ded release Take 2 tablets every day by oral route at bedtime. active Not Available Not Available No t Available Latuda 20 mg tablet Take 1 tablet every day by oral route. active Not Available Not Available No t Available Vitals Date Recorded Respiratory rate Oxygen saturation Oxygen saturation in Arterial blood by Pulse oximetry Body weight Heart rate Body mass index (BMI) Body height Body temperature Systolic And Diastolic Provider Name and Address Organization Details Last Updated DateTime 5 12 /min 99 % 99 % 82413.9 24482 g 89 /min 28.6 kg/m2 170.18 cm 98.7 [degF] 110/80 mm[Hg] Summer Forrest MA [facility] 5 12:26:28 Date Recorded Respiratory rate Oxygen saturation Oxygen saturation in Arterial blood by Pulse oximetry Body weight Heart rate Body mass index (BMI) Body height Body temperature Systolic And Diastolic Provider Name and Address Organization Details Last Updated DateTime 5 12 /min 99 % 99 % 78121.3 02793 g 91 /min 28.2 kg/m2 170.18 cm 98.3 [degF] 124/86 mm[Hg] Summer Forrest MA [facility] 5 11:27:07 Date Recorded Body mass index (BMI) Oxygen saturation Oxygen saturation in Arterial blood by Pulse oximetry Respiratory rate Body temperature Body height Body weight Heart rate Systolic And Diastolic Provider Name and Address Organization Details Last Updated DateTime 6 28.5 kg/m2 99 % 99 % 12 /min 98.2 [degF] 170.18 cm 03545.0 69049 g 102 /min 120/90 mm[Hg] Summer Forrest MA [facility] 6 09:12:35 Date Recorded Respiratory rate Body weight Oxygen saturation Oxygen saturation in Arterial blood by Pulse oximetry Body height Body mass index (BMI) Body temperature Heart rate Systolic And Diastolic Provider Name and Address Organization Details Last Updated DateTime 5 12 /min 62266.3 44794 g 100 % 100 % 170.18 cm 29 kg/m2 97.5 [degF] 80 /min 118/86 mm[Hg] Summer Forrest MA [facility] 5 09:10:09 Date Recorded Systolic And Diastolic Provider Name and Address Organization Details Last Updated DateTime 04/22/2015 110/80 mm[Hg] Leeanne Mitchell MD Attn: Accounting,[address] [place], [address], [facility] 04/22/2015 09:35:04 Date Recorded Body temperature Body mass index (BMI) Body height Heart rate Respiratory rate Oxygen saturation Oxygen saturation in Arterial blood by Pulse oximetry Body weight Systolic And Diastolic Provider Name and Address Organization Details Last Updated DateTime 5 98.3 [degF] 29.8 kg/m2 170.18 cm 82 /min 12 /min 100 % 100 % 42182.6 56047 g 126/88 mm[Hg] Summer Forrest MA [facility] 5 09:11:34 Social History Question Answer Notes LastModified by Organizat ion Details LastModified Time Tobacco Smoking Status Former Smoker Summer Forrest MA null, [facility] 05/15/2014 12:26:27 How Much Tobacco Do You Smoke? 1 PPD Information not available 05/15/2014 Sex: Unknown Functional Status Question Answer Note LastModified by Organization D etails LastModified Time What is your level of alcohol consumption? None former Information not available 05/15/2014 Mental Status None recorded. Family History Relationship Description Onset Age of this Age Resolved Age Notes LastModified by Organization Details LastModified Time Mother Malignant neoplasm of lung 56 nsuthan Not available 2014 09:31:55 Father Harmful pattern of use of alcohol 82 nsuthan Not available 2014 09:31:55 Brother Hypercholest erolemia nsuthan Not available 2014 09:31:55 Medical History Condition Response Anxiety Disorder Y High Cholesterol Y Acid Reflux (GERD) Y Thyroid Problems Y Kidney or Bladder Problems Y Depression Y Immunizations Vaccine Type Date Status Note Provider Nam e and Address Organization Details Recorded Time Tdap 4 completed Leeanne Mitchell MD Attn: Accounting,[address] [place], [address], [facility] 05/15/2014 13:11:22 Influenza, split virus, quadrivalent, preservative 5 completed Not Available [facility] 05/11/2019 02:47:17 Past Encounters Encounter ID Performer Location Encounter Start Date Encounter Closed Date Diagnosis/Indication Diagnosis SNOMED-CT Code Diagnosis ICD10 Code Diagnosis IMO Codes Diagnosis Note [id number] MD Marilou Villar (Adult Med) [address] [place] [address] 05/15/2014 11:47:09 05/15/2014 13:03:44 Hypertriglyceridemia 250956776 pt to t tootie med as prescribed Missed med during 04/06 due to depression Bipolar disorder 25192429 with Adult ADHD meds per Gastroesop hageal reflux disease 557470842 continue Ranitidine Chronic back pain 607979217 Increase Neurontin bid Knee pain 07177801 of L/kn ee Consider imaging if pain continues [id number] [facility] [address] [place] [address] 09/17/2014 10:56:39 09/17/2014 12:00:45 Hyperlipidemia 15310134 continue Fenofibrat e Add Pravastati n labs in 3 month Chronic renal failure 28861243 pt was seeing in the past , stopped seeing him D/c Mobic Gastroesop hageal reflux disease 711689460 continue Ranitidine Chronic back pain 409624065 continue Neurontin bid add Baclofen Avoid NSAID [id number] [facility] [address] [place] [address] 01/21/2015 09:03:50 01/21/2015 09:40:47 Hyperlipidemia 96581340 pt to continue Fenofibrat e as prescribed ( noncomplia nt with med) continue Pravastati n Chronic renal failure 04557457 pt was seeing in the past , stopped seeing him Avoid NSAID Chronic back pain 362340910 continue Neurontin bid Increase Baclofen Refer for PT check xray Avoid NSAID Administra tion of influenza vaccine 76256893 Chronic dermatitis 01893849 on behind ear apply moisturize r [id number] MD Marilou Villar (Adult Med) [address] [place] [address] 04/22/2015 08:46:52 04/23/2015 16:03:53 Hyperlipidemia 94146771 E78.2 pt to continue Fenofibrat e as prescribed ( noncomplia nt with med) continue Pravastati n Chronic back pain 817918 002 M54.6 xray -DDD continue Neurontin bid Increase Baclofen Avoid NSAID Screening for malignant neoplasm of prostate 801222474 Z12.5 [id number] MD Marilou Villar (Adult Med) [address] [place] [address] 10/21/2015 09:03:37 10/21/2015 10:39:51 Hyperlipidemia 18468805 E78.2 pt to continue Fenofibrat e / pravastati n as prescribed ( noncomplia nt with med) pt is counseled Bipolar disorder 9439214 4 F31.9 with Adult ADHD meds per Acute conjunctivitis 537 59449 H10.31 with foreign body sensation - eye irrigated , but pt still feels same will give topical antibiotic eye ointment pt to see eye doctor for further evaluation Health Concerns Section Related Observation LastModified by Organization Detai ls LastModified Time None Recorded Concern Status LastModified by Organization Details LastModified Time None Recorded Advance Directives Directive None Recorded Payers Insurance Date Sequence Insurance Name Policy Number Policy Hernández Covered Member ID Hernández Member ID Guarantor Name 10/19/2015 1 [facility] - DOS PRIOR TO 2020 (MEDICAID REPLACEMENT - HMO) Kevin Hassan [id number] 10/21/2015 1 [employer] - [facility] - DOS PRIOR TO 2024 (PPO) [id number] Kevin Hassan [id number] 11/04/2015 1 [facility] [employer] - OPEN ACCESS [id number] Kevin Hassan [id number] Notes Date Note Type Note Provider Name and Address Organization Details Recorded Time 05/15/19 15 text/htm l HyperlipidemiaReported by PatientHPIFor type of hyperlipidemia, patient reportshypertriglyceridemia. For duration, patient reportschronic. For compliance, patient reportsnoncompliant (med in 12/14 as per pt)but reportscompliant with diet. For complications, patient reportsno coronary artery disease. KneeReported by PatientHPIFor associated symptoms, patient reportspopping/clickingbut reportsno swelling. For location, patient reportsleft. For quality, patient reportsaching. For severity, patient reportspain level 8/10. For duration, patient reports2 weeks. For context, patient reportscannot identify. For aggravating factors, patient reportswalking. Reflux/GERDReported by PatientHPIFor severity, patient reportsimproving. For context, patient reportsnon-smokerandno drug/alcohol abuse. For alleviating factors, patient reportsmedication (ranitidine). For associated symptoms, patient reportsno difficulty swallowingandno weight loss. Leeanne Mitchell MD Attn: Accounting, [address] [place], [address], [facility] 05/15/2014 13:14:03 09/18/19 15 text/htm l HyperlipidemiaReported by PatientHPIFor type of hyperlipidemia, patient reportscombined. For duration, patient reportschronic. For control, patient reportsnot at goal. For compliance, patient reportscompliantandcompliant with diet. For complications, patient reportsno coronary artery disease. Reflux/GERDReported by PatientHPIFor severity, patient reportsimproving. For context, patient reportsnon-smokerandno drug/alcohol abuse. For alleviating factors, patient reportsmedication (ranitidine). For associated symptoms, patient reportsno difficulty swallowingandno weight loss. Leeanne Mitchell MD Attn: Accounting, [address] [facility], [place], [address], [facility] 09/17/2014 12:04:09 01/22/20 15 text/htm l HyperlipidemiaReported by PatientHPIFor type of hyperlipidemia, patient reportscombined. For duration, patient reportschronic. For control, patient reportsnot at goal. For compliance, patient reportsnoncompliant (with med). For complications, patient reportsno coronary artery disease. Back PainReported by PatientHPIFor severity, patient reportsworsening. For aggravating factors, patient reportsmovement/positioning. For location, patient reportspain is not radiating(mid back). For duration, patient reportschronic. For context, patient reportsprior back problems. For associated symptoms, patient reportsno numbness of the legs/feetandno shortness of breath. Leeanne Mitchell MD Attn: Accounting, [address] [facility], [place], [address], [facility] 01/21/2015 09:40:17 04/22/20 15 text/htm l HyperlipidemiaReported by PatientHPIFor type of hyperlipidemia, patient reportscombined. For duration, patient reportschronic. For control, patient reportsimproving. For current therapy, patient reportscurrently taking: (fenofibrate and pravastatin). For compliance, patient reportscompliant. For complications, patient reportsno coronary artery disease. Leeanne Mitchell MD Attn: Accounting, [address] [facility], [place], [address], [facility] 04/22/2015 09:38:04 10/21/19 16 text/htm l HyperlipidemiaReported by PatientHPIFor type of hyperlipidemia, patient reportscombined. For duration, patient reportschronic. For compliance, patient reportsnoncompliant (not taking for 2 month). For control, patient reportsimproving. For current therapy, patient reportscurrently taking: (fenofibrate and pravastatin). For complications, patient reportsno coronary artery disease. Eye PainReported by PatientHPIFor quality, patient reportsaching. For associated symptoms, patient reportsredness(foreign body sensation). For location, patient reportsright. For duration, (1 day). Leeanne Mitchell MD Attn: Accounting, [address] [facility], [place], [address], [facility] 10/21/2015 09:38:58
--- OUTSIDE RECORDS SUMMARY | 2025-02-17 01:59 | XMS_ITS | Clinical Summary ---
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 Active TraZODone HCl 300 MG Tablet Take by mouth nightly. Active busPIRone (BUSPAR) 15 MG Tablet Take by mouth. Active Atomoxetine HCl (STRATTERA) 80 MG Capsule Take by mouth. Active lurasidone (LATUDA) 20 MG Tablet Take by mouth. Active Nrdzn-9-vyca Ethyl Esters (LOVAZA PO) Take 1 g by mouth. Active niacin 500 MG Tablet Take by mouth. Active levothyroxine (SYNTHROID) 100 MCG Tablet Take by mouth. Active Esomeprazole Magnesium (NEXIUM PO) Take 40 mg by mouth. Active fenofibrate (TRIGLIDE, LOFIBRA) 160 MG Tablet Take by mouth. Active gabapentin (NEURONTIN) 300 MG Capsule Take 300 mg by mouth 2 times daily. Active HYDROcodone-acet aminophen (NORCO) 5-325 MG Tablet Take 5-325 Tabs by mouth 2 times daily. 10/29/2019 Active venlafaxine (EFFEXOR-XR) 150 MG CAPSULE SR 24 HR Take 150 mg by mouth once. 11/28/2019 Active ondansetron (ZOFRAN-ODT) 4 MG TABLET DISPERSIBLE Take 1 Tab by mouth every 8 hours as needed for Nausea - 1st line. 10 Tab 12/05/2019 Active Active Problems Problem Noted Date Diagnosed Date Bipolar affective Depression Schizophrenia ADHD (attention deficit hyperactivity disorder) Anxiety Dyslipidemia Hypothyroidism Immunizations Immunization Administration Dates Next Due Influenza Vaccine 04/24/2010 TD VACCINE 04/24/2003 Social History Tobacco Use Types Packs/Day Years Used Date Smoking Tobacco: Every Day Cigarettes Last attempted to quit: 12/05/2019 Smokeless Tobacco: Never Alcohol Use Standard Drinks/Week Comments Not Currently 0 (1 standard drink = 0.6 oz pur e alcohol) AUDIT-C Answer Date Recorded Q1: How often do you have a drink containing alc ohol? Never 12/05/2019 Average Number of Drinks Not on file 020 Frequency of Binge Drinking Not on file 11/22 Sex and Gender Information Value Date Recorded Sex Assigned at Not on file Legal Sex Male 11:22 PM CDT Gender Identity Not on file Sexual Orientation Not on file Last Filed Vital Signs Vital Sign Reading Time Taken Comments Blood Pressure 124/73 01/26/2020 7:30 AM CDT Pulse 83 01/26/2020 7:30 AM CDT Temperature 36.8 C (98.2 F) 01/26/2020 5:10 AM CDT Respiratory Rate 12 01/26/2020 5:10 AM CDT Oxygen Saturation 99% 01/26/2020 7:30 AM CDT Inhaled Oxygen Concentration - - Weight 77.1 kg (170 lb) 01/26/2020 5:10 AM CDT Height 170.2 cm (5' 7) 01/26/2020 5:10 AM CDT Body Mass Index 26.63 01/26/2020 5:10 AM CDT Plan of Treatment Health Maintenance Due Date Last Done Comments Hepatitis C Virus (HCV) Screening 1970 Hepatitis B Immunization (1 of 3 - 19+ 3-dose series) 1989 Cologuard 12/11/2015 Colonoscopy 12/11/2015 Colorectal Cancer Screening 12/11/2015 Immunochemical Fecal Occult Blood 12/11/2015 Pneumococcal Immunization (5 0+ years) (1 of 1 - PCV) 2020 Zoster Immunization (1 of 2) 2020 Influenza Immunization (#1) 12/23/202401/22, 01/21/2015, 04/24/2010 SARS-COV-2 Immunization ( - 2024- season) 2024 06/30/2021, 06/02/2021 Respiratory Syncytial Virus (RSV) Immunization (Adult) (1 - 1-dose 75+ series) 2045 DTaP/Tdap/Td Immunization Discontinued 2013, 04/24/2003 TdaP Immunization Completed 01/21/2014 Human Papillomavirus (HPV) Immunization Aged Out No longer eligible based on patient's age to complete this topic Meningococcal Immunization (ACWY) Aged Out No longer eligible based on patient's age to complete this topic Rotavirus Immunization Aged Out No lo nger eligible based on patient's age to complete this topic Insurance 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
[2025-02-17 07:44] VITALS: BP 117/83; PULSE 85; RESP 18; TEMP 36.2; O2SAT 98; BMI 32.3
[2025-02-17] MEDS: LACTATED RINGERS 1,000 ML 150 ML IV CONT (08:13)
--- NOTE | 2025-02-17 08:38 | WPDANESEPPF ---
Anes - Initial Pre Proc Eval Procedure: Operation Date: 02/17/25 08:30 Proposed Procedures p Screening Colonoscopy - Manuelito Jonas MD Date/Time: 02/17/25 08:38 Surgeon: Manuelito Jonas MD Pre Op Diagnosis: Personal history of colon polyps, unspecified Patient Data Age: 54 Gender: M Height: 1.7 m Weight: 93.7 kg Last Vital Signs Temp 36.2 C L 02/17/25 07:44 Pulse 85 02/17/25 07:44 Resp 18 02/17/25 07:44 BP 117/83 02/17/25 07:44 Pulse Ox 98 02/17/25 07:44 O2 Del Method Room Air 02/17/25 07:44 Allergies Allergy/AdvReac Type Severity Reaction Status Date / Time No Known Allergies Allergy Verified 02/17/25 07:51 Home Medications ?Medication ?Instructions ?Recorded ?Confirmed ?Type famotidine 40 mg tablet 40 mg PO DAILY 12/18/23 02/05/25 History fenofibrate 160 mg tablet 160 mg PO DAILY 12/18/23 02/17/25 History gabapentin 600 mg tablet 600 mg PO DAILY 12/18/23 02/17/25 History glimepiride 2 mg tablet 2 mg PO DAILY 12/18/23 02/17/25 History metformin 850 mg tablet 850 mg PO DAILY 12/18/23 02/17/25 History modafinil 200 mg tablet 200 mg PO DAILY 12/18/23 02/17/25 History olanzapine 10 mg tablet 10 mg PO DAILY 12/18/23 02/17/25 History rosuvastatin 20 mg tablet 20 mg PO DAILY 12/18/23 02/17/25 History lisinopril 5 mg tablet 5 mg PO DAILY 02/05/25 02/17/25 History meloxicam 15 mg tablet 15 mg PO DAILY 02/05/25 02/17/25 History omeprazole 20 mg capsule,delayed 20 mg PO DAILY 02/05/25 02/17/25 History release semaglutide 1 mg/dose (4 mg/3 mL) 1 mg subcut WEEKLY 02/05/25 02/17/25 History subcutaneous pen injector (Ozempic) Laboratory Tests 02/17/25 07:59 POC Capillary Glucose 116 H mg/dl (65-105) Patient hx anesthesia problems: none Family hx anesthesia problems: none Results Review: All pre-operative results and documents have been reviewed as part of the pre-operative evaluation. ON LICENSE OF [facility] Past Medical History Medical History Occult blood in stools Social History Social History Smoking status: Former smoker Tobacco type: cigarettes Substance use: current Substance use type: marijuana Living arrangements: with family Spiritual care concerns: No Anes - Eval Final PreProcedure Day of Procedure 02/17/25 08:38 Patient weight: obese Heart: regular rate and rhythm Lungs: decreased breath sounds Airway: Mallampati scale class II Neurological: alert and oriented Last oral intake: >/= 8 hours ASA classification: III Emergent: no Anesthetic plan: proceed Anesthesia type and monitoring: general GIVS and standard monitoring Results Review: All pre-operative results and documents have been reviewed as part of the pre-operative evaluation. Informed Consent: The patient's anesthetic plan and its attendant risks and benefits were discussed with the patient/family/POA. Questions were solicited and answers provided to the satisfaction of the patient/family/POA.
--- NOTE | 2025-02-17 08:43 | PM.HPGS ---
History of Present Illness History of Present Illness Consent: Risks, benefits, and alternatives have been discussed and questions answered. Patient agrees to proceed with procedure. Chief complaint: Personal history of colon polyps, unspecified Narrative: Kevin Hassan is a 54 year old male with large colon polyps 1 year ago Review of Systems Review of Systems: All systems reviewed & are unremarkable except as noted in HPI and below PMFSH Past Medical History Medical History (Updated 02/17/25 @ 08:44 by Manuelito Jonas MD) Adenomatous colon polyp Occult blood in stools Social History Social History Smoking status: Former smoker Tobacco type: cigarettes Substance use: current Substance use type: marijuana Living arrangements: with family Spiritual care concerns: No Meds Home Medications and Allergies Home Medications ?Medication ?Instructions ?Recorded ?Confirmed ?Type famotidine 40 mg tablet 40 mg PO DAILY 12/18/23 02/05/25 History fenofibrate 160 mg tablet 160 mg PO DAILY 12/18/23 02/17/25 History gabapentin 600 mg tablet 600 mg PO DAILY 12/18/23 02/17/25 History glimepiride 2 mg tablet 2 mg PO DAILY 12/18/23 02/17/25 History metformin 850 mg tablet 850 mg PO DAILY 12/18/23 02/17/25 History modafinil 200 mg tablet 200 mg PO DAILY 12/18/23 02/17/25 History olanzapine 10 mg tablet 10 mg PO DAILY 12/18/23 02/17/25 History rosuvastatin 20 mg tablet 20 mg PO DAILY 12/18/23 02/17/25 History lisinopril 5 mg tablet 5 mg PO DAILY 02/05/25 02/17/25 History meloxicam 15 mg tablet 15 mg PO DAILY 02/05/25 02/17/25 History omeprazole 20 mg capsule,delayed 20 mg PO DAILY 02/05/25 02/17/25 History release semaglutide 1 mg/dose (4 mg/3 mL) 1 mg subcut WEEKLY 02/05/25 02/17/25 History subcutaneous pen injector (Ozempic) Allergies Allergy/AdvReac Type Severity Reaction Status Date / Time No Known Allergies Allergy Verified 02/17/25 07:51 Vital Signs Vital Signs - 24 hr 02/17/25 07:44 Temperature 97.2 F L Pulse Rate 85 Respiratory Rate 18 Blood Pressure 117/83 Pulse Oximetry 98 Oxygen Delivery Room Air Exam Const: General: comfortable and no acute distress HENMT: Face/Nose/Sinus: Normal nares present Eyes: General: appearance normal, both eyes and all related structures Neck: Neck: no JVD Resp: Auscultation: clear to auscultation bilaterally Cardio: Rate: regular rate Rhythm: regular rhythm GI: Inspection: non-distended GI Palp: Yes Soft to palpation Skin: General skin exam: normal color Extrem: General: normal to inspection Psych: Mental Status: mental status grossly normal Assessment and Plan Assessment and plan (1) Adenomatous colon polyp: Code(s): D12.6 - Benign neoplasm of colon, unspecified Status: Acute Assessment and Plan: colonoscopy
--- NOTE | 2025-02-17 09:01 | S_PTH ---
PATIENT: Kevin Hassan LOC: [facility]#:[id number] AGE/SX: 54/M ROOM: RE02/17/[address]: Manuelito Jonas MD : 1970 BED: DIS: 02/17/2025 SPEC #: [id number] RECD: 02/17/25 09:14 STATUS: UNA REQ #: [id number] GAEL: 02/17/25 09:[address]: Manuelito Jonas DEPT: [facility] Surgical RECD BY: Marimar Chadwick ENTERED: 02/17/25 09:15 SP TYPE: Surgical OTHR DR: Ludwin Sams MD Tissues: A - Colon Polypectomy Procedures: Hematoxylin and Eosin Stain Gross and Microscopic Level 4
[2025-02-17 09:03] VITALS: BP 106/75; PULSE 94; RESP 14; O2SAT 96
[2025-02-17 09:13] VITALS: BP 124/76; PULSE 90; RESP 16; O2SAT 98
[2025-02-17 09:23] VITALS: BP 117/79; PULSE 78; RESP 16; O2SAT 98
== END 2025-02-17 09:39 | disposition home or self-care (01) ==
PROVIDERS: PCP Emergency Medicine; Referring Provider Internal Medicine Gastroenterology; Visit Provider Internal Medicine Gastroenterology
PROC: 0DJD8ZZ Inspection of Lower Intestinal Tract, Via Natural or Artificial Opening Endoscopic (ICD-10-PCS; CPT 45378; principal; 2025-02-17 08:30)
DX: Z09 Encounter for follow-up examination after completed treatment for conditions other than malignant neoplasm (principal); D12.4 Benign neoplasm of descending colon; K64.8 Other hemorrhoids; K57.30 Diverticulosis of large intestine without perforation or abscess without bleeding; F12.90 Cannabis use, unspecified, uncomplicated; E66.9 Obesity, unspecified; Z68.32 Body mass index [BMI] 32.0-32.9, adult; Z79.84 Long term (current) use of oral hypoglycemic drugs; Z79.85 Long-term (current) use of injectable non-insulin antidiabetic drugs; Z87.891 Personal history of nicotine dependence
CPT/HCPCS: 45385; 82948; 88305; J2003; J2704; J7120